=== PATIENT | female | born 1940 | race Caucasian/White ===

== ENCOUNTER → 2022-06-30 13:34 | Outpatient (REF) | payer MEDICARE, SELFPAY ==
--- NOTE | 2022-06-30 14:00 | CA_ITS ---
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 The calculated ejection fraction is 54% by biplane method. - There is mildly decreased right ventricular systolic function. - Severe biatrial enlargement. - There is mild aortic valve regurgitation. 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 - Moderate plaque is seen in the sino tubular ridge. Findings Left Ventricle Normal left ventricular cavity size. The left ventricular systolic function is low normal. The calculated ejection fraction is 54% by biplane method. There is no evidence of regional wall motion abnormalities. Diastolic function is indeterminate on the basis of available data. There is moderate septal asymmetric hypertrophy. Right Ventricle Mildly increased right ventricular cavity size. There is mildly decreased right ventricular systolic function. Atria Severe biatrial enlargement. Aortic Valve There is a normal trileaflet aortic valve. There is mild calcification of the aortic valve. There is mild aortic valve regurgitation. Mitral Valve There is mild mitral annular calcification. There is trace mitral valve regurgitation. There is no mitral valve stenosis. Pulmonic Valve There is trace pulmonic valve regurgitation. Tricuspid Valve Normal tricuspid valve structure. There is mild tricuspid valve regurgitation. There is no evidence of pulmonary hypertension. 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 Moderate plaque is seen in the sino tubular ridge. Venous The inferior vena cava is mildly dilated and collapses greater than 50% with inspiration. Pericardium/Pleural There is no evidence of pericardial effusion. Prior Study Comparison No prior study available for comparison. Measurements 2D Linear Measurements IVSd: 1.39 0.6-0.9/0.6-1.0 cm LVIDd: 5.16 3.9-5.3/4.2-5.9 cm LVIDd Index: 2.85 2.4-3.2/2.2-3.1 cm/m2 LVIDs: 3.20 2.0-3.6 cm LVPWd: 0.95 0.7-1.1 cm LA Diam: 4.40 2.7-3.8/3.0-4.0 cm LAIDs Index: 2.43 1.5-2.3 cm/m2 LV Mass: 296.39 67-162/88-224 g LV Mass Index: 163.75 43-95/49-115 g/m2 LVOT Diam: 2.30 3.0+(-)1.3 cm 2D Systolic Function EF 4C: 52.60 >55% EF 2C: 54.50 >55% EF BiP: 54.20 >55% Mitral Valve MV VTI: 0.31 MV Pk Arben: 1.15 MV Mn Arben: 0.58 MV Pk Grad: 5.00 MV Mn Grad: 2.00 MV Pk E: 0.90 MV Decel Time: 245.00 E'Lateral: 10.40 E'Medial: 6.53 E/E' Med: 13.70 E/E' Lat: 8.60 PHT: 72.00 MVA PHT: 3.06 MVA Continuity: 2.08 Decel Barber: 3.65 Aortic Valve AoV Pk Arben: 1.51 AoV Pk Grad: 9.00 AI Pk Arben: 2.73 AI Barber: 1.49 LVOT LVOT Pk Arben: 0.71 LVOT Mn Arben: 0.50 LVOT VTI: 0.16 LVOT Pk Grad: 2.00 LVOT Mn Grad: 1.00 LVOT Diam: 2.30 LVOT Area: 4.15 Diastolic Function MV Pk E: 0.90 E'Medial: 6.53 E/E' Med: 13.70 E' Laterial: 10.40 E/E' Lat: 8.60 Right Ventricle TAPSE (mm): 17.40 TVS' Arben: 9.55 Tricuspid Valve TR Pk Arben: 2.37 TR Pk Grad: 22.00 RA Press: 8.00 RVSP: 30.00 Great Vessels Aorta Sinus of Valsalva: 4.79 2.0-3.5 cm Ao Asc: 4.00 2.1-3.4 cm Updated in Other Vendor System with Status of Final Sukhdeep Faye MD electronically signed on 07/01/2022 1:10:11 PM with status of Final
== END ==
LOC: HO.CARD 13:34
DX: I71.21 Aneurysm of the ascending aorta, without rupture (principal)
CPT/HCPCS: 93306